=== PATIENT | female | born 1960 | race Caucasian/White ===

== ENCOUNTER → 2017-04-21 | Outpatient (CLI) | payer BC, OTHER ==
--- NOTE | 2017-04-21 14:11 | RAD ---
Bone densitometry scan, 04/21/2017: History: Postmenopausal screening The lumbar spine and right hip were examined utilizing a DEXA technique. The bone mineral density in the lumbar spine as measured from the L1-L4 levels is 0.95 g/sq cm. This yields a T score of -1.9 compatible with osteopenia. This has worsened since 03/11/2012 at which time the lumbar skin spine T score was -1.1. The total T score at the right hip is -0.8 which is in the normal range. The right hip T score on the previous exam was 0.2. IMPRESSION: Worsening bone mineral density measurements with osteopenia in the lumbar spine.
== END | disposition home or self-care (01) ==
LOC: DXRAD 13:05
PROVIDERS: ATTEND Physician Assistant Medical
DX: Z78.0 Asymptomatic menopausal state (principal); M85.88 Other specified disorders of bone density and structure, other site
CPT/HCPCS: 77080

== ENCOUNTER → 2020-10-17 | Outpatient (CLI) | payer BC, OTHER ==
--- NOTE | 2020-10-22 08:14 | RAD ---
EXAM: Left axillary sonogram. HISTORY: 60-year-old female presents with a left axillary lump. TECHNIQUE: Sonographic imaging of the left axilla at the site of palpable concern was performed. COMPARISON: None. FINDINGS: There is a solid hyperechoic lesion with internal blood flow in the left axilla at the site of palpable concern measuring 2.1 x 1.6 x 1.0 cm, the appearance of which favors a lymph node with p rominent fatty hilum and thin cortex. There are additional small lymph nodes with benign morphology i n the left axilla. IMPRESSION: 1. 2.1 cm suspected benign lymph node with fatty hilum and thin cortex within the left axilla at the site of palpable concern. There are additional small surrounding benign-appearing axillary lymph node s. 2. BI-RADS Category 2: Benign finding(s). Note is made that there is no mammogram at this facility fo r this patient. Bilateral mammography is recommended if not performed within the past year at a [facility] facility. Electronically signed by: Marcelina Hinkle MD (10/22/2020 8:11 AM) [id number]
== END ==
LOC: PMG 08:07
PROVIDERS: ATTEND Physician Assistant Medical
DX: R22.9 Localized swelling, mass and lump, unspecified (principal)
CPT/HCPCS: 76881